=== PATIENT | female | born 1945 | race Caucasian/White ===

== ENCOUNTER 2016-07-17 09:51 | Inpatient (IN) ==
[2016-07-17] MEDS ORDERED: Lidocaine -MPF 1% 2 ML VIAL ID ONE (10:11)
[2016-07-17] MEDS ORDERED: Vancomycin 1,000 MG in D5% in Water 250 ML IVPB ONE ×2 (10:11→11:15)
[2016-07-17] MEDS ORDERED: CeFAZolin Pre 2,000 MG/100 ML 2,000 MG/100 ML BAG IVPB ONE (10:11)
--- NOTE | 2016-07-17 10:12 | Anesthesia Evaluation PreOp ---
Date of Encounter: 07/17/16 Time of Encounter: 10:10 - Past History Planned Operation: R femoral EA, poss fem-fem bypass Cardiac History: HTN, Other (PAD, h/o dvt, hypercoag blood d/o. pt has mets<4. No cardiac w/u other than ekg. 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: CVA (2011, no residual deficit), Other (depression, anxiety, spinal stenosis) Other Medical History: Thyroid, GERD Anesthesia History: No Prior Anesthetic Complications, Past Anesthesia (R fem EA , l bka, ivc filter, r tsr, stent x 2, thyroid, radha) Alcohol Use: none Drug use: none Medications and Allergies Calcium Carbonate [Calcium] 500 mg PO BID 11/22/14 [History] Duloxetine HCl [Cymbalta] 60 mg PO DAILY 11/22/14 [History] Levothyroxine [Synthroid] 75 mcg PO MOWEFR 11/22/14 [History] Pregabalin [Lyrica] 50 mg PO TID 11/22/14 [History] Docusate [Colace] 200 mg PO DAILY 09/21/15 [History] Ranitidine HCl [Zantac] 150 mg PO BID 09/21/15 [History] Ascorbate Calcium [Vitamin C] 500 mg PO BID 10/31/15 [History] Ferrous Sulfate 325 mg PO BID 10/31/15 [History] Oxycodone HCl 5 mg PO BID 10/31/15 [History] Cholecalciferol (D-3) [Vitamin D] 2,000 unit PO DAILY 01/30/16 [History] Diazepam [Valium] 2 mg PO DAILY 01/30/16 [History] DiphenhydraMINE [Benadryl] 50 mg PO ONCE MDD Prior to Surgery 01/30/16 [History] Levothyroxine [Synthroid] 100 mcg PO 4XW 01/30/16 [History] Linaclotide [Linzess] 290 mcg PO DAILY 01/30/16 [History] Meclizine [Antivert] 12.5 mg PO DAILY PRN 01/30/16 [History] PredniSONE [Prednisone] 50 mg PO ONCE MDD Prior to surgery 01/30/16 [History] Saline Nasal [place] [[place] Nasal [place]] 1 spray NS QID 01/30/16 [History] Albuterol Neb [AccuNeb] 0.63 mg IH Q4H PRN 07/16/16 [History] OxyCODONE/APAP 5/325 [Percocet 5/325 MG] 1 - 2 each PO Q4H PRN 07/16/16 [History ] Rivaroxaban [Xarelto] 10 mg PO DAILY #0 07/16/16 [Rx] Allergies gabapentin [From Neurontin] Allergy (Verified 11/22/14 10:17) Confusion shellfish derived Allergy (Verified 11/22/14 10:17) Confusion acetaminophen [From Vicodin] Adverse Reaction (Verified 11/22/14 10:17) Nausea cefuroxime [From Ceftin] Adverse Reaction (Verified 11/22/14 10:17) Nausea hydrocodone [From Vicodin] Adverse Reaction (Verified 11/22/14 10:17) Nausea pregabalin [From Lyrica] Adverse Reaction (Verified 02/28/15 20:12) Confusion - Meds/Allergy Pre-op Review Medications Reviewed: Yes (xarelto off x 48hrs) Allergies Reviewed: Yes Beta Blockers on Current Med List: No Anesthesia Results - Labs Laboratory Tests 07/15/16 07/15/16 07/15/16 15:47 15:47 15:47 Hgb 13.3 Hct 41.2 Plt Count 252 PT 12.0 INR 1.1 APTT 36.6 H Sodium 139 Potassium 4.0 Creatinine 0.81 - Imaging EKG: report reviewed (sr) Anesthesia Exam O2 Sat Height 1.68 m Height 1.68 m Weight 70.307 kg Weight 70.307 kg O2 Sat by Pulse Oximetry 99 Vital Signs Temp Pulse Resp BP Pulse Ox 97.8 F 51 16 146/68 99 07/17/16 10:06 07/17/16 10:06 07/17/16 10:06 07/17/16 10:06 07/17/16 10:06 Height: 1.68 Weight: 70 NPO (# of Hours): >8 - HEENT Pupil (Motor): Pupils equal, EOMI Mallampati: II Teeth: Edentulous Denture Type: Upper: Complete Oral Opening: Greater than 3 - ENGINEER THIRD ASSISTANT LOC: Oriented ENGINEER THIRD ASSISTANT Motor: Normal RUE, Normal LUE, Normal RLE, Normal Face, Deficit LLE ENGINEER THIRD ASSISTANT Sensory: Normal: RUE, LUE, RLE, Face, Deficit: LLE - Cardiac Rhythm: Regular Murmur: None - Pulmonary Breath Sounds: bilateral Clear Respiratory Effort: Symmetrical Anesthesia Assess/Plan ASA Score: 4 Modified Nona Scale for Level of Consciousness: Cooperative, oriented, and tranquil Anesthetic Plan: General Monitoring Plan: Standard Monitors, A-Line (post induction) Recovery Plan: PACU
[2016-07-17] MEDS ORDERED: Albuterol 2.5 MG/3 ML NEBULIZER IH ONE (10:13)
[2016-07-17] MEDS ORDERED: Albuterol 2.5 MG/3 ML NEBULIZER ONE (10:18)
[2016-07-17] MEDS ORDERED: *HR* Phenylephrine 10 MG/ML VIAL ONE (10:26)
[2016-07-17] MEDS ORDERED: *HR* Rocuronium Bromide 50 MG/5 ML VIAL ONE (10:26)
[2016-07-17] MEDS ORDERED: *HR* Etomidate 40 MG/20 ML VIAL IVP ONE (10:27)
[2016-07-17] MEDS ORDERED: *HR* Heparin 5,000 UNIT/ML VIAL ONE (10:27)
[2016-07-17] MEDS: Ringers Solution, Lactated 1,000 ML IVC SCH ×2 (10:38→14:30)
[2016-07-17] MEDS ORDERED: Vancomycin 1,000 MG VIAL ONE (11:07)
[2016-07-17] MEDS ORDERED: Heparin 1,000 UNITS/500 mL NS 1,500 ML ONE (11:09)
--- NOTE | 2016-07-17 11:14 | History & Physical Report ---
Date of Encounter: 07/17/16 Time of Encounter: 01:05 24 Hour HP Update - Instructions Instructions: If the History and Physical is less than 30 days old and was completed prior to A.M. admission and or procedure and has NOT been updated on calendar day of procedure please complete this update prior to performing procedure. - Update Patient reports changes in Medical Condition: No Changes in examination, assessment, or condition: No Changes in Medication: No Preop tests/diagnostics Reviewed: Yes Surgery Remains Indicated: Yes Consent for Planned Operative Procedure(s) Verified: Yes - Pre-Operative Checklist Preoperative Checklist Indicated: Yes Prophylactic Antibiotic Ordered: Yes (Vancomycin due to MRSA risk) Home Medications Include Beta Asad: No Beta Asad Taken Today (Day of Surgery): No Beta Asad Taken Yesterday (Day Prior to Surgery): No Is VTE Prophylaxis Indicated?: Yes
[2016-07-17] MEDS ORDERED: *HR* Midazolam HCl 2 MG/2 ML VIAL ONE (11:23)
[2016-07-17] MEDS ORDERED: *HR* FentaNYL (PF) 100 MCG/2 ML VIAL ONE (11:23)
[2016-07-17] MEDS ORDERED: Dexamethasone 4 MG/ML VIAL ONE (15:32)
[2016-07-17] MEDS ORDERED: Ondansetron 4 MG/2 ML VIAL ONE (15:32)
--- NOTE | 2016-07-17 15:42 | Operative Note ---
Date of procedure: 07/17/16 Pre-op diagnosis: Peripheral vascular disease with rest pain Post-op diagnosis: same Procedure: 1. Right iliofemoral endarterectomy with bovine pericardial patch angioplasty. 2. Right deep femoral endarterectomy with bovine pericardial patch angioplasty. Complications: None Anesthesia: GETA Surgeon: Perfecto Pabon Estimated blood loss (cc): 100 Specimen: None Condition: stable Disposition: PACU Procedure in Detail: Indications: The patient is a 71 year old female with a history of severe peripheral vascular disease. She has previously undergone a right femoral to popliteal artery bypass with saphenous vein. She presented to clinic with rest pain in the right forefoot. She underwent an angiogram which revealed severe stenosis proximal to her graft and occlusion of the deep femoral artery. Revascularization was recommended to reduce the risk of limb loss. Procedure: The patient was identified in the preoperative area. The risks, benefits, and alternatives of procedure were discussed and all questions were answered. She was taken to the operating room and placed in supine position on the operating room table. After the induction of general endotracheal anesthesia, she was cleaned and draped in normal sterile fashion. An oblique incision was made in the right groin sharply through her previous scar. Hemostasis was obtained with electrocautery. Through a process of blunt and sharp electrocautery dissection, the skin and subcutaneous tissues were incised and the right distal iliac, common femoral, deep femoral and superficial femoral arteries were dissected cicumferentially and surrounded with vessel loops. The graft was also dissected circumferentially. The dissection required significant dissection through scar and elevation of the inguinal ligament. The patient received 5000 units of heparin intravenously and additional heparin throughout the case to maintain adequate anticoagulation. The vessels were occluded by applying tension to the vessel loops. A longitudinal ateriotomy was made into the patch overlying the common femoral artery. The arteriotomy was extedned into the anterior surface of the vein graft distally and into the external iliac artery proximally. Significant occlusive plaque was noted in the deep femoral artery and nearly occlusive plaque was identified in the external iliac and common femoral arteries. A pulse could be palpated proximal to the vessel loop on the external iliac artery. Dissection was performed more proximally and an atraumatic vascular clamp was placed across the vessel at this level. The loop tension was released and the external iliac artery arteriotomy was extended more proximally. The incision crossed the entire bovine pericardial patch so the entire patch was removed along the suture line. Using a dental [place], a standard endarterectomy was performed on the external iliac, common femoral and deep femoral arteries. Proximal and distal endpoints were inspected and no elevated flaps were identified. A new bovine pericardial patch was cut to fit the defect and sutured in place with running 6-0 Prolene. Prior to completing the patch anastomosis, each vessel was flushed individually , then reoccluded. Heparinized saline was infused into the lumen. The patch was completed and flow was restored. At this point, it was noted that a persistent stenosis was present in the midportion of the patch due to the prior excision of unhealthy appearing femoral artery margin. A arteriotomy was janiya in the middle of the patch over this segment. A second path was used to create a larger lumen in this segment. The patch was sutured in place with a running 6 -0 prolene. The vessels were flushed prior to closure of the patch and heparinized saline was infused. The patch was completed and flow was restored. Strong pulsatile flow was noted through the entire patch and graft. Polypahsic signals were noted. Thrombin and Gelfoam were used to aid in hemostasis. Polyphasic signal was noted distal to the distal end of the patch as well as the posterior tibial artery. Wound was irrigated with antibiotic-containing saline. Platelet-rich and platelet-poor plasma were infused into the wound. The wounds were reapproximated with layer of 2-0 Vicryl followed by two layers of 3-0 and Vicryl 3-0 Monocryl in the subcuticular layer. Sterile dressings were applied. The patient was extubated, taken to recovery room in stable condition.
[2016-07-17] MEDS ORDERED: *HR* Labetalol 100 MG/20 ML MDV IVP PRN (15:46)
[2016-07-17] MEDS ORDERED: Ketorolac 15 MG/ML VIAL IVP ONE (15:46)
[2016-07-17] MEDS ORDERED: *HR* OxyCODONE/APAP 5/325 TABLET PO PRN ×2 (15:46→16:35)
[2016-07-17] MEDS ORDERED: *HR* Meperidine 25 MG/ML SYRINGE IVP PRN (15:46)
[2016-07-17] MEDS ORDERED: Ondansetron 4 MG/2 ML VIAL IVP ONE (15:46)
[2016-07-17] MEDS ORDERED: Ringers Solution, Lactated 1,000 ML IVC SCH (16:00)
--- NOTE | 2016-07-17 16:20 | Anesthesia Evaluation Post Op ---
Date of Encounter: 07/17/16 Time of Encounter: 16:19 - Vital Signs Vital Signs: Vital Signs/O2 Sat/Glucose, Most Current Temp Pulse Resp BP Pulse Ox 07/17/16 16:11 98.1 F 54 16 103/61 100 07/17/16 16:01 61 16 91/68 100 07/17/16 15:51 59 16 97/68 98 07/17/16 15:41 97.8 F 60 16 105/66 99 - Lungs Lungs: Clear Ascult./Percussion - Airway Airway: Non-obstructed - Cardiovascular Regular Rate - Mental Status Mental Status: Asleep with brisk response to light stimulation - Pain Pain Scale: 2 - Nausea Vomiting Nausea Vomiting: Not Present - Hydration Hydration: NPO - Discharge PostOp Status: Transfer Patient to floor
[2016-07-17] MEDS ORDERED: *HR* Morphine 2 MG/ML SYRINGE IVP PRN (16:35)
[2016-07-17] MEDS ORDERED: Albuterol Neb 0.63 MG/3 ML VIAL IH PRN (16:35)
[2016-07-17] MEDS ORDERED: Acetaminophen 325 MG TABLET PO PRN (16:35)
[2016-07-17] MEDS ORDERED: *HR* Labetalol 20 MG/4 ML SYRINGE IVP PRN (16:35)
[2016-07-17] MEDS ORDERED: Ondansetron 4 MG/2 ML VIAL IVP PRN (16:35)
[2016-07-17] MEDS ORDERED: Naloxone 0.4 MG/ML INJ IVP PRN (16:35)
[2016-07-17] MEDS ORDERED: *HR* OxyCODONE Immed Rel 5 MG TABLET PO PRN (16:35)
[2016-07-17] MEDS: Saline Nasal Spray 44 ML BOTTLE NS SCH ×2 (17:16→20:59)
[2016-07-17] MEDS: *HR* Metoprolol 5 MG/5 ML VIAL IVP SCH ×3 (17:16→22:53)
[2016-07-17] MEDS: 0.9 % Sodium Chloride 1,000 ML IVC SCH (17:18)
[2016-07-17] MEDS: Ascorbic Acid 500 MG TABLET PO SCH (20:59)
[2016-07-17] MEDS: Famotidine 20 MG TABLET PO SCH (20:59)
[2016-07-17] MEDS: Pregabalin 50 MG CAPSULE PO SCH (20:59)
[2016-07-17] MEDS ORDERED: diazePAM 2 MG TABLET PO SCH (21:00)
[2016-07-18] MEDS ORDERED: Vancomycin 1,000 MG in D5% in Water 250 ML IVPB ONE
[2016-07-18] MEDS: *HR* Metoprolol 5 MG/5 ML VIAL IVP SCH (03:56)
[2016-07-18 04:53] LABS: Basophils % 0.5 %; Eosinophils % 0.2 %; Hematocrit 32.6 % (35.3-44.9); Immature Granulocytes % 0.4 % (0-4); Lymphocytes # 1.2 K/mcL (0.6-4.6); Lymphocytes % 15.1 %; Mean Corpuscular HGB Conc 32.2 g/dL (31.6-35.5); Mean Corpuscular Hemoglobin 28.7 pg (28.0-33.3); Mean Corpuscular Volume 89.1 fL (83.0-100.0); Monocytes # 0.6 K/mcL (0.0-1.3); Monocytes % 7.8 %; Neutrophils # 6.1 K/mcL (1.6-8.9); Platelet Count 191 K/mcL (140-400); Red Blood Count 3.66 M/mcL (3.82-4.97); Red Cell Distribution Width 13.4 % (11.5-14.5)
[2016-07-18 04:59] LABS: Hemoglobin 10.5 g/dL (11.5-15.4)
[2016-07-18 05:14] LABS: BUN/Creatinine Ratio 16 (6-26); Blood Urea Nitrogen 10 mg/dL (7-20); Calcium 8.6 mg/dL (8.6-10.8); Carbon Dioxide 27 mEq/L (19-29); Chloride 105 mEq/L (98-109); Glucose 80 mg/dL (70-99); Osmolality,Calculated 284 (280-300); Potassium 3.9 mEq/L (3.5-4.5); Sodium 138 mEq/L (136-145); eGFR For African Americans > 60 (> 60); eGFR For Non-African Americans > 60 (> 60)
[2016-07-18] MEDS ORDERED: *HR* Heparin 5,000 UNIT/ML VIAL SQ SCH (06:00)
--- NOTE | 2016-07-18 07:07 | Discharge Summary ---
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 She reports that her leg feels much better. Her wound is healing and her pain is controlled. She will be discharged today. Qualifiers: Peripheral atherosclerosis artery type: bypass graft, autologous vein Laterality: right Qualified Code(s): I70.421 - Atherosclerosis of autologous vein bypass graft(s) of the extremities with rest pain, right leg (2) Chronic anemia Priority: Secondary Status: Chronic Comments: The patient has chronic disease anemia without evidence of ongoing blood loss. (3) Tobacco abuse Priority: Secondary Status: Chronic Comments: The patient was counseled extensively regarding smoking cessation. She was reminded that progression of her atherosclerosis and it's complications is likely to occur with continued tobacco abuse. (4) COPD (chronic obstructive pulmonary disease) Priority: Secondary Status: Chronic Qualifiers: COPD type: emphysema Emphysema type: panlobular Qualified Code(s): J43.1 - Panlobular emphysema (5) Hypercoagulable state Priority: Secondary Status: Chronic - Discharge Medications Prescriptions: OxyCODONE/APAP 5/325 [Percocet 5/325 MG] 1 each PO Q4HR PRN #40 tablet PRN Reason: postoperative pain Home Medications: Calcium Carbonate [Calcium] 500 mg PO BID 11/22/14 [History] Duloxetine HCl [Cymbalta] 60 mg PO DAILY 11/22/14 [History] Pregabalin [Lyrica] 50 mg PO TID 11/22/14 [History] Docusate [Colace] 200 mg PO DAILY 09/21/15 [History] Ranitidine HCl [Zantac] 150 mg PO BID 09/21/15 [History] Ascorbate Calcium [Vitamin C] 500 mg PO BID 10/31/15 [History] Ferrous Sulfate 325 mg PO BID 10/31/15 [History] Oxycodone HCl 5 mg PO BID 10/31/15 [History] Cholecalciferol (D-3) [Vitamin D] 2,000 unit PO DAILY 01/30/16 [History] Diazepam [Valium] 2 mg PO HS 01/30/16 [History] Levothyroxine [Synthroid] 100 mcg PO DAILY 01/30/16 [History] Linaclotide [Linzess] 290 mcg PO DAILY 01/30/16 [History] Meclizine [Antivert] 12.5 mg PO DAILY PRN 01/30/16 [History] Saline Nasal [place] [[place] Nasal [place]] 1 spray NS QID 01/30/16 [History] Albuterol Neb [AccuNeb] 0.63 mg IH Q4H PRN 07/16/16 [History] OxyCODONE/APAP 5/325 [Percocet 5/325 MG] 1 - 2 each PO Q4H PRN 07/16/16 [History ] Rivaroxaban [Xarelto] 10 mg PO HS 07/17/16 [History] OxyCODONE/APAP 5/325 [Percocet 5/325 MG] 1 each PO Q4HR PRN #40 tablet 07/18/16 [Rx] Allergies/Adverse Reactions: Allergies acetaminophen [From Vicodin] Adverse Reaction (Verified 07/17/16 11:11) Nausea cefuroxime [From Ceftin] Adverse Reaction (Verified 07/17/16 11:11) Nausea gabapentin [From Neurontin] Adverse Reaction (Verified 07/17/16 11:11) Confusion hydrocodone [From Vicodin] Adverse Reaction (Verified 07/17/16 11:11) Nausea pregabalin [From Lyrica] Adverse Reaction (Verified 07/17/16 11:11) Confusion shellfish derived Adverse Reaction (Verified 07/17/16 11:11) Confusion Date of admission: 07/17/16 16:35 Primary care physician: PCP NO Consults: 07/17/16 19:27 Consult to Metrology Specialist [CONS] Routine Reason for SW Consult: Return to detention. Procedure(s) Performed: Right lower extremity endarterectomy Discharging clinician: Perfecto Pabon Anticipated date of discharge: 07/18/16 - Patient Status Disposition: Home, Self-Care Condition: Good Functional capacity at discharge: uses cane/walker Overall status at discharge: patient is back to baseline - Discharge Instructions Follow Up With: Barrington Garcia MD [Primary Care Provider] - (PT IS FROM [facility] NO PCP APPOINTMENT NEEDED) Perfecto Pabon MD [Partnered Physician] - 08/27/16 1:00 pm NO,PCP [Non-Partnered Physician] - () Additional Instructions: May remove bandage and shower 07/19/16. Wash wound gently and pat to dry. APply dry gauze to wound daily for 7 days. No tub baths or swimming until 08/11/16. Call Dr. Pabon at [phone] with questions or concerns. - Diet and Activity Activity: increase activity as tolerated Diet: advance to your usual diet, low fat, low cholesterol - Hospital Course Hospital course: Ms. Bates is a 71 year old female with a history of peripheral vascular disease with rest pain, COPD, tobacco abuse and a hypercoagulable state. The patient was admitted on 07/17/16. She underwent [facility] lower extremity endarterectomy. She tolerated the procedure well. On postoperative day #1 she was feeling much better. Her foot was warm with polyphasic pedal signals. She was discharged in stable condition without complication. Time spent discussing smoking cessation with patient: 3 to 10 minutes - Time Spent with Patient Total time spent providing and/or coordinating discharge services: Exam Vital Signs, Last 4 Hours Temp Pulse Resp BP Pulse Ox 07/18/16 04:21 53 07/18/16 03:10 97.6 F 52 14 116/61 100 General: Present: Conversant, No Apparent Distress HEENT: Present: Atraumatic Cardiac: Present: Reg Rate and Rhythm, Normal S1 and S2 Lungs: Present: Normal Breath Sounds Neuro: Present: Alert and responsive, No focal deficits noted, Motor nerves grossly intact, Sensory nerves grossly intact Abdomen: Present: Soft Vascular: Present: Pulse, normal (pedal signals polyphasic), Surgical incisions (clean, dry and intact without erythema, drainage or hematoma). Absent: Cyanosis, Edema Skin: Present: No rashes noted on visualized skin - VTE Documentation of Mechanical Device: Intermittent pneumatic compression device
[2016-07-18 07:51] VITALS: BP 106/43
[2016-07-18] MEDS ORDERED: (Linaclotide [Linzess] 290 MCG) PO SCH (09:00)
[2016-07-18] MEDS ORDERED: Cholecalciferol (D-3) 1,000 UNIT TABLET PO SCH (09:00)
[2016-07-18] MEDS: Pregabalin 50 MG CAPSULE PO SCH (09:30)
[2016-07-18] MEDS: Famotidine 20 MG TABLET PO SCH (09:31)
[2016-07-18] MEDS: Ascorbic Acid 500 MG TABLET PO SCH (09:31)
[2016-07-18] MEDS: Saline Nasal Spray 44 ML BOTTLE NS SCH (09:32)
[2016-07-18] MEDS: 0.9 % Sodium Chloride 1,000 ML IVC SCH (11:08)
[2016-07-18] MEDS ORDERED: *HR* Rivaroxaban 10 MG TABLET PO SCH (21:00)
== END 2016-07-18 12:15 | DRG 271 ==
LOC: SAMDAY 09:51 → 2NNU 16:35
PROVIDERS: ADMIT Surgery; ATTEND Surgery